=== PATIENT | female | born 1945 | race Caucasian/White ===

== ENCOUNTER 2025-04-15 17:12 | Inpatient (IN) | payer MEDICARE ==
[~2025-04-15] VITALS: Ht 172.7 cm; Wt 59.2 kg
[2025-04-15 17:28] VITALS: BP 127/67
[2025-04-15 17:47] LABS: BASO # 0.1 10*3/uL (0.0-0.1); BASO % 0.8 % (0.0-1.0); EOS # 0.2 10*3/uL (0.0-0.4); EOS % 1.3 % (1.0-4.0); MEAN CELL VOLUME 93.3 fl (81.0-99.0); MEAN CORPUSCULAR HGB 28.7 pg (27.0-31.0); MEAN PLATELET VOLUME 9.3 fl (9.6-12.3); MONO # 0.9 10*3/uL (0.1-1.0); MONO % 7.4 % (3.0-9.0); NEUT # 8.5 10*3/uL (2.3-7.9); NEUT % 72.8 % (47.0-73.0); NUCLEATED RED BLOOD CELL 0.0 % (0.0-0.0); NUCLEATED RED BLOOD CELL 0.0 10*3/uL (0.0-0.0); PLATELET COUNT AUTOMATED 227 10*3/uL (130-400); RED CELL DISTRI WIDTH 16.4 % (0-14.5)
[2025-04-15] MEDS ORDERED: ATENOLOL25 MG PO (17:51)
[2025-04-15] MEDS ORDERED: ATORVASTATIN CA10 M1 PO (17:52)
[2025-04-15] MEDS ORDERED: BUSPIRONE HCL10 MG PO (17:53)
[2025-04-15] MEDS ORDERED: Sinemet Cr 25-11 TAB PO (17:54)
[2025-04-15] MEDS ORDERED: CIPROFLOXACIN500 M4 PO (17:56)
[2025-04-15 17:58] LABS: ACT PARTIAL THROMBO TIME 31.0 SECONDS (20.0-32.1)
[2025-04-15] MEDS ORDERED: CYCLOBENZAPRINE10 MG PO (17:58)
[2025-04-15] MEDS ORDERED: DESVENLAFAXINE50 M3 PO (18:01)
[2025-04-15] MEDS ORDERED: FAMOTIDINE40 MG PO (18:03)
[2025-04-15] MEDS ORDERED: VOLTAREN ARTHRI20 GM T (18:03)
[2025-04-15 18:12] LABS: BUN 11 mg/dl (9-23); CPK 185 U/L (34-171)
[2025-04-15 18:13] LABS: ETHYL ALCOHOL < 3.0 mg/dl (<3); SGPT/ALT < 7 U/L (5-49)
[2025-04-15 18:32] LABS: BILIRUBIN Negative (Negative); BLOOD Negative (Negative); CLARITY Clear (Clear); COLOR Dark Yellow (Yellow); KETONE Trace (Negative); LEUKO ESTERASE 2+ (Negative); NITRITE Negative (Negative); PH 5.0 (4.5-8.0); SPECIFIC GRAVITY 1.020 (1.001-1.030); UROBILINOGEN 1.0 E.U./dl (0.0-1.0)
[2025-04-15 18:39] LABS: URINE AMPHETAMINES Negative (1000ng/ml); URINE BARBITURATES Positive (200ng/ml); URINE BENZODIAZEPINES Negative (200ng/ml); URINE CANNABINOIDS (THC) Negative (50ng/ml); URINE COCAINE Negative (300ng/ml); URINE METHADONE Negative (300ng/ml); URINE OPIATES Negative (300ng/ml); URINE PHENCYCLIDINE Negative (25ng/ml)
[2025-04-15 18:40] LABS: BACTERIA 1+; MUCOUS TRACE; RBC 0-2 rbc/hpf (0-2); WBC 31-40 wbc/hpf (0-5)
[2025-04-15] MEDS ORDERED: POTASSIUM CHLORIDE 20 MEQ TAB PO ONE (18:45)
[2025-04-15] MEDS ORDERED: MAGNESIUM OXIDE 400 MG TAB PO ONE (18:45)
[2025-04-15] MEDS ORDERED: FEROSUL325 M1 PO (18:59)
[2025-04-15] MEDS ORDERED: FUROSEMIDE40 MG PO (19:01)
[2025-04-15] MEDS ORDERED: FLORASTOR250 MG PO (19:01)
[2025-04-15] MEDS ORDERED: GABAPENTIN100 M2 PO (19:02)
[2025-04-15] MEDS ORDERED: GLIPIZIDE5 MG PO (19:02)
[2025-04-15] MEDS ORDERED: IMDUR SA30 MG PO (19:04)
[2025-04-15] MEDS ORDERED: LAMOTRIGINE200 MG PO (19:05)
[2025-04-15] MEDS ORDERED: LATANOPROST2.5 ML OP (19:07)
[2025-04-15] MEDS ORDERED: LAMOTRIGINE100 MG PO (19:07)
[2025-04-15] MEDS ORDERED: MELATONIN5 M1 PO (19:09)
[2025-04-15] MEDS ORDERED: MAGNESIUM400 M1 PO (19:09)
[2025-04-15] MEDS ORDERED: METFORMIN HYDR500 MG PO (19:11)
[2025-04-15] MEDS ORDERED: OMEPRAZOLE MAGN20 MG PO (19:11)
[2025-04-15] MEDS ORDERED: PHENOBARBITAL32.4 M2 PO (19:12)
[2025-04-15] MEDS ORDERED: PHENOBARBITAL64.8 MG PO (19:12)
[2025-04-15] MEDS ORDERED: POTASSIUM CHLO10 ME5 PO (19:13)
[2025-04-15] MEDS ORDERED: ROPINIROLE HYD0.5 MG PO (19:13)
[2025-04-15] MEDS ORDERED: SITAGLIPTIN100 MG PO (19:14)
[2025-04-16] MEDS ORDERED: Water, Sterile 10 ML VIAL IM PRN (00:55)
[2025-04-16] MEDS ORDERED: AVEENO ANTI-IT118 ML T (01:23)
[2025-04-16] MEDS ORDERED: HALOPERIDOL5 MG/1 M1 IM (01:50)
[2025-04-16] MEDS ORDERED: ABILIFY5 MG PO (01:56)
[2025-04-16] MEDS ORDERED: ASPERCREME LID1 EACH T (02:04)
[2025-04-16] MEDS ORDERED: BIOFREEZE T (02:07)
[2025-04-16 04:25] VITALS: BP 117/72
[2025-04-16 07:43] LABS: BASO # 0.1 10*3/uL (0.0-0.1); BASO % 0.6 % (0.0-1.0); EOS # 0.2 10*3/uL (0.0-0.4); EOS % 1.5 % (1.0-4.0); MEAN CELL VOLUME 94.7 fl (81.0-99.0); MEAN CORPUSCULAR HGB 28.7 pg (27.0-31.0); MEAN PLATELET VOLUME 9.8 fl (9.6-12.3); MONO # 0.8 10*3/uL (0.1-1.0); MONO % 6.1 % (3.0-9.0); NEUT # 9.4 10*3/uL (2.3-7.9); NEUT % 76.0 % (47.0-73.0); NUCLEATED RED BLOOD CELL 0.0 % (0.0-0.0); NUCLEATED RED BLOOD CELL 0.0 10*3/uL (0.0-0.0); PLATELET COUNT AUTOMATED 236 10*3/uL (130-400); RED CELL DISTRI WIDTH 16.5 % (0-14.5)
[2025-04-16 08:00] VITALS: BP 121/54
[2025-04-16] MEDS ORDERED: LORazepam 1 MG TAB PO PRN (08:00)
[2025-04-16] MEDS ORDERED: MG-AL HYDROXIDE/SIMETICONE 30 ML UDC PO PRN (08:00)
[2025-04-16] MEDS ORDERED: ACETAMINOPHEN 325 MG TAB PO PRN (08:00)
[2025-04-16] MEDS ORDERED: DIVALPROEX (DR) 500 MG TAB PO ONE (08:40)
[2025-04-16] MEDS ORDERED: Desvenlafaxine Succinate 50 MG TER PO SCH (09:00)
[2025-04-16] MEDS ORDERED: Menthol/Zinc Oxide 4 GM THIN T PRN (09:00)
[2025-04-16] MEDS ORDERED: PHENOBARBITAL 30 MG TAB PO SCH ×3 (09:00→21:00)
[2025-04-16] MEDS ORDERED: risperiDONE 1 MG TAB PO SCH (09:00)
[2025-04-16] MEDS ORDERED: DIVALPROEX (DR) 250 MG TAB PO SCH (09:00)
[2025-04-16] MEDS ORDERED: CEFDINIR 300 MG CAP PO SCH (09:00)
[2025-04-16 10:35] LABS: BUN 8 mg/dl (9-23); LDL CHOLESTEROL 58 mg/dL (9-159)
[2025-04-16 10:36] LABS: SGPT/ALT < 7 U/L (5-49)
[2025-04-16] MEDS ORDERED: POTASSIUM CHLORIDE 20 MEQ TAB PO ONE (10:45)
[2025-04-16 10:55] LABS: VITAMIN D, 25-HYDROXY 26.0 ng/mL (30-100)
[2025-04-16] MEDS ORDERED: GABAPENTIN 100 MG CAP PO SCH (13:00)
[2025-04-16] MEDS ORDERED: Carbidopa/Levodopa CR 25/100MG 1 TAB PO SCH (13:00)
[2025-04-16] MEDS ORDERED: glipiZIDE 5 MG TAB PO SCH (16:30)
[2025-04-16 20:00] VITALS: BP 177/69
[2025-04-16] MEDS ORDERED: MAGNESIUM OXIDE 400 MG TAB PO SCH (21:00)
[2025-04-16] MEDS ORDERED: LAMOTRIGINE 100 MG TAB PO SCH (22:00)
[2025-04-16] MEDS ORDERED: LATANOPROST 0.005% 2.5 ML BOTTLE OPH SCH (22:00)
[2025-04-17 08:53] VITALS: BP 132/54
[2025-04-17] MEDS ORDERED: LINAGLIPTIN 5 MG TAB PO SCH (09:00)
[2025-04-17] MEDS ORDERED: ATENOLOL 25 MG TAB PO SCH (10:00)
[2025-04-17] MEDS ORDERED: FUROSEMIDE 40 MG TAB PO SCH (10:00)
[2025-04-17] MEDS ORDERED: FAMOTIDINE 20 MG TAB PO SCH (10:00)
[2025-04-17] MEDS ORDERED: ISOSORBIDE MONONITRATE 30 MG TAB PO SCH (10:00)
[2025-04-17] MEDS ORDERED: OMEPRAZOLE 20 MG CAP PO SCH (10:00)
[2025-04-17] MEDS ORDERED: ATORVASTATIN CALCIUM 10 MG TAB PO SCH (10:00)
[2025-04-17] MEDS ORDERED: LAMOTRIGINE 100 MG TAB PO SCH (10:00)
[2025-04-17 20:00] VITALS: BP 133/58
[2025-04-18 08:00] VITALS: BP 106/44
[2025-04-18] MEDS ORDERED: POTASSIUM CHLORIDE 10 MEQ TAB PO SCH (09:00)
[2025-04-18 20:00] VITALS: BP 117/58
[2025-04-19 06:32] LABS: BUN 10 mg/dl (9-23)
[2025-04-19 08:11] VITALS: BP 121/47
[2025-04-19] MEDS ORDERED: DIVALPROEX (DR) 500 MG TAB PO SCH (13:00)
[2025-04-19 14:07] LABS: Tpa Abs Non Reactive (Non Reactive)
[2025-04-19 20:00] VITALS: BP 113/55
[2025-04-20 08:11] VITALS: BP 132/85
[2025-04-20] MEDS ORDERED: DIVALPROEX SODIUM 125 MG CAP PO SCH (09:00)
[2025-04-20] MEDS ORDERED: Cholecalciferol 2,000 UNIT TABLET (50 MCG) PO SCH (10:05)
[2025-04-20 20:00] VITALS: BP 99/65
[2025-04-21 08:41] VITALS: BP 124/48
[2025-04-21 09:59] LABS: MEAN CELL VOLUME 92.8 fl (81.0-99.0); MEAN CORPUSCULAR HGB 29.0 pg (27.0-31.0); MEAN PLATELET VOLUME 10.1 fl (9.6-12.3); NUCLEATED RED BLOOD CELL 0.0 % (0.0-0.0); NUCLEATED RED BLOOD CELL 0.0 10*3/uL (0.0-0.0); PLATELET COUNT AUTOMATED 261 10*3/uL (130-400); RED CELL DISTRI WIDTH 16.6 % (0-14.5)
[2025-04-21 10:13] LABS: MANUAL DIFF REFLEX YES
[2025-04-21 10:30] LABS: BUN 14 mg/dl (9-23); SGPT/ALT 7 U/L (5-49)
[2025-04-21 10:54] LABS: PLATELET SUFFICIENCY NORMAL (NORMAL)
[2025-04-21 12:08] LABS: MEAN CELL VOLUME 92.3 fl (81.0-99.0); MEAN CORPUSCULAR HGB 28.4 pg (27.0-31.0); MEAN PLATELET VOLUME 10.1 fl (9.6-12.3); NUCLEATED RED BLOOD CELL 0.0 % (0.0-0.0); NUCLEATED RED BLOOD CELL 0.0 10*3/uL (0.0-0.0); PLATELET COUNT AUTOMATED 268 10*3/uL (130-400); RED CELL DISTRI WIDTH 16.4 % (0-14.5)
[2025-04-21] MEDS ORDERED: SODIUM CHLORIDE 0.9% 1,000 ML IV ONE (12:15)
[2025-04-21 12:25] LABS: MANUAL DIFF REFLEX YES
[2025-04-21 12:54] LABS: PLATELET SUFFICIENCY NORMAL (NORMAL)
[2025-04-21 20:00] VITALS: BP 153/83
[2025-04-21 21:07] LABS: BILIRUBIN Negative (Negative); BLOOD Negative (Negative); CLARITY Clear (Clear); COLOR Yellow (Yellow); KETONE 3+ (Negative); LEUKO ESTERASE Negative (Negative); NITRITE Negative (Negative); PH 5.5 (4.5-8.0); SPECIFIC GRAVITY 1.020 (1.001-1.030); UROBILINOGEN 0.2 E.U./dl (0.0-1.0)
[2025-04-21 21:14] LABS: BACTERIA TRACE; MUCOUS 1+
[2025-04-22 07:18] LABS: MEAN CELL VOLUME 93.8 fl (81.0-99.0); MEAN CORPUSCULAR HGB 29.1 pg (27.0-31.0); MEAN PLATELET VOLUME 10.2 fl (9.6-12.3); NUCLEATED RED BLOOD CELL 0.0 % (0.0-0.0); NUCLEATED RED BLOOD CELL 0.0 10*3/uL (0.0-0.0); PLATELET COUNT AUTOMATED 251 10*3/uL (130-400); RED CELL DISTRI WIDTH 16.6 % (0-14.5)
[2025-04-22 07:21] LABS: MANUAL DIFF REFLEX YES
[2025-04-22 07:32] LABS: BUN 18 mg/dl (9-23); VALPROIC ACID (DEPAKENE) 12.2 ug/ml (50-100)
[2025-04-22 07:52] LABS: PLATELET SUFFICIENCY NORMAL (NORMAL)
[2025-04-22 08:00] VITALS: BP 153/103
[2025-04-22] MEDS ORDERED: hydrOXYzine hydrochloride 50 MG/ML VIAL IM PRN (13:40)
[2025-04-22] MEDS ORDERED: SODIUM CHLORIDE 0.9% 10 ML VIAL IV ONE (17:15)
[2025-04-22] MEDS ORDERED: ACETAMINOPHEN 650 MG SUPP R PRN (17:20)
[2025-04-22] MEDS ORDERED: SODIUM CHLORIDE 0.9% 1,000 ML IV ONE (17:20)
[2025-04-22 20:00] VITALS: BP 153/99
[2025-04-23] MEDS ORDERED: diphenhydrAMINE hydrochloride 50 MG/ML VIAL IM ONE (00:15)
[2025-04-23] MEDS ORDERED: diphenhydrAMINE hydrochloride 50 MG/ML VIAL ONE (00:29)
[2025-04-23 08:00] VITALS: BP 120/65
[2025-04-23] MEDS ORDERED: LORazepam 1 MG TAB PO PRN (08:20)
[2025-04-23] MEDS ORDERED: diazePAM 10 MG/2 ML SYR IM PRN (08:30)
[2025-04-23 08:53] LABS: MEAN CORPUSCULAR HGB 28.7 pg (27.0-31.0); MEAN PLATELET VOLUME 10.5 fl (9.6-12.3); NUCLEATED RED BLOOD CELL 0.0 % (0.0-0.0); NUCLEATED RED BLOOD CELL 0.0 10*3/uL (0.0-0.0); PLATELET COUNT AUTOMATED 247 10*3/uL (130-400); RED CELL DISTRI WIDTH 16.4 % (0-14.5)
[2025-04-23 09:05] LABS: MANUAL DIFF REFLEX YES; MEAN CELL VOLUME 97.9 fl (81.0-99.0)
[2025-04-23 09:15] LABS: BASOPHILS 1 % (0-1)
[2025-04-23 09:16] LABS: PLATELET SUFFICIENCY NORMAL (NORMAL)
[2025-04-23 09:18] LABS: BUN 20 mg/dl (9-23); SGPT/ALT 11 U/L (5-49)
[2025-04-23] MEDS ORDERED: SODIUM CHLORIDE 0.9% 1,000 ML IV ONE (15:25)
[2025-04-23 20:00] VITALS: BP 134/99
[2025-04-24 07:08] LABS: BASO # 0.1 10*3/uL (0.0-0.1); BASO % 0.5 % (0.0-1.0); EOS # 0.0 10*3/uL (0.0-0.4); EOS % 0.1 % (1.0-4.0); MEAN CELL VOLUME 98.0 fl (81.0-99.0); MEAN CORPUSCULAR HGB 28.7 pg (27.0-31.0); MEAN PLATELET VOLUME 10.5 fl (9.6-12.3); MONO # 1.1 10*3/uL (0.1-1.0); MONO % 7.6 % (3.0-9.0); NEUT # 10.1 10*3/uL (2.3-7.9); NEUT % 70.5 % (47.0-73.0); NUCLEATED RED BLOOD CELL 0.0 % (0.0-0.0); NUCLEATED RED BLOOD CELL 0.0 10*3/uL (0.0-0.0); PLATELET COUNT AUTOMATED 212 10*3/uL (130-400); RED CELL DISTRI WIDTH 16.2 % (0-14.5)
[2025-04-24 07:13] LABS: BUN 22 mg/dl (9-23)
[2025-04-24] MEDS ORDERED: VITAMIN D350 MCG PO (08:10)
[2025-04-24] MEDS ORDERED: SODIUM CHLORIDE 0.45% 1,000 ML IV ONE (08:15)
[2025-04-24] MEDS ORDERED: HALOPERIDOL5 MG/1 M1 IM (22:05)
== END 2025-04-24 08:34 | disposition short-term general hospital (02) | DRG 883 ==
LOC: ED 17:12 → 3N 18:59
PROVIDERS: Internal Medicine; Registered Nurse; ADMIT Psychiatry & Neurology Psychiatry; ATTEND Psychiatry & Neurology Psychiatry
PROC: GZHZZZZ Group Psychotherapy (ICD-10-PCS; principal; 2025-04-20)
DX: F63.81 Intermittent explosive disorder (principal); E11.65 Type 2 diabetes mellitus with hyperglycemia; I11.0 Hypertensive heart disease with heart failure; N30.00 Acute cystitis without hematuria; F02.84 Dementia in other diseases classified elsewhere, unspecified severity, with anxiety; R65.10 Systemic inflammatory response syndrome (SIRS) of non-infectious origin without acute organ dysfunction; D64.9 Anemia, unspecified; E55.9 Vitamin D deficiency, unspecified; I50.9 Heart failure, unspecified; G40.909 Epilepsy, unspecified, not intractable, without status epilepticus; E78.5 Hyperlipidemia, unspecified; I48.91 Unspecified atrial fibrillation; K21.9 Gastro-esophageal reflux disease without esophagitis; G30.9 Alzheimer's disease, unspecified; G20.A1 Parkinson's disease without dyskinesia, without mention of fluctuations; F31.9 Bipolar disorder, unspecified; G25.81 Restless legs syndrome; H40.9 Unspecified glaucoma; E87.6 Hypokalemia; E11.42 Type 2 diabetes mellitus with diabetic polyneuropathy; Z88.2 Allergy status to sulfonamides; Z88.8 Allergy status to other drugs, medicaments and biological substances; Z79.899 Other long term (current) drug therapy

== ENCOUNTER 2025-04-25 18:51 | Inpatient (IN) | payer OTHER ==
[~2025-04-25] VITALS: Ht 162.6 cm; Wt 68.0 kg
[~2025-04-25 18:51] MED LIST: ABILIFY5 MG PO; ASPERCREME LID1 EACH T; ATENOLOL25 MG PO; ATORVASTATIN CA10 M1 PO; AVEENO ANTI-IT118 ML T; BIOFREEZE T; BUSPIRONE HCL10 MG PO; CIPROFLOXACIN500 M4 PO; CYCLOBENZAPRINE10 MG PO; DESVENLAFAXINE50 M3 PO; FAMOTIDINE40 MG PO; FEROSUL325 M1 PO; FLORASTOR250 MG PO; FUROSEMIDE40 MG PO; GABAPENTIN100 M2 PO; GLIPIZIDE5 MG PO; HALOPERIDOL5 MG/1 M1 IM; IMDUR SA30 MG PO; LAMOTRIGINE100 MG PO; LAMOTRIGINE200 MG PO; LATANOPROST2.5 ML OP; MAGNESIUM400 M1 PO; MELATONIN5 M1 PO; METFORMIN HYDR500 MG PO; OMEPRAZOLE MAGN20 MG PO; PHENOBARBITAL32.4 M2 PO; PHENOBARBITAL64.8 MG PO; POTASSIUM CHLO10 ME5 PO; ROPINIROLE HYD0.5 MG PO; SITAGLIPTIN100 MG PO; Sinemet Cr 25-11 TAB PO; VITAMIN D350 MCG PO; VOLTAREN ARTHRI20 GM T
[2025-04-25] MEDS ORDERED: ACETAMINOPHEN 650 MG SUPP R PRN (19:40)
[2025-04-25] MEDS ORDERED: HYOSCYAMINE SULFATE 0.125 MG TAB SL PRN (19:40)
[2025-04-25] MEDS ORDERED: BISACODYL 10 MG SUPP R PRN (19:40)
[2025-04-25 20:00] VITALS: BP 138/50
[2025-04-25] MEDS ORDERED: diazePAM 10 MG/2 ML SYR IV SCH (20:00)
[2025-04-26] VITALS: BP 83/39
[2025-04-26 04:00] VITALS: BP 90/50
[2025-04-26 08:00] VITALS: BP 71/37
[2025-04-26] MEDS ORDERED: SODIUM CHLORIDE 0.9% 500 ML IV SCH (09:25)
[2025-04-26 11:15] VITALS: BP 60/40
== END 2025-04-26 12:16 ==
LOC: 4E 18:51
PROVIDERS: ADMIT Student in an Organized Health Care Education/Training Program; ATTEND Student in an Organized Health Care Education/Training Program
DX: I21.4 Non-ST elevation (NSTEMI) myocardial infarction (principal); E87.0 Hyperosmolality and hypernatremia; N30.00 Acute cystitis without hematuria; E87.20 Acidosis, unspecified; R65.10 Systemic inflammatory response syndrome (SIRS) of non-infectious origin without acute organ dysfunction; F31.9 Bipolar disorder, unspecified; K21.9 Gastro-esophageal reflux disease without esophagitis; E78.5 Hyperlipidemia, unspecified; I10 Essential (primary) hypertension; G62.9 Polyneuropathy, unspecified; G20.A1 Parkinson's disease without dyskinesia, without mention of fluctuations; G25.81 Restless legs syndrome; G40.909 Epilepsy, unspecified, not intractable, without status epilepticus; E55.9 Vitamin D deficiency, unspecified; E87.6 Hypokalemia; R62.7 Adult failure to thrive; D72.829 Elevated white blood cell count, unspecified; F02.80 Dementia in other diseases classified elsewhere, unspecified severity, without behavioral disturbance, psychotic disturbance, mood disturbance, and anxiety; E11.42 Type 2 diabetes mellitus with diabetic polyneuropathy; E78.2 Mixed hyperlipidemia; F03.90 Unspecified dementia, unspecified severity, without behavioral disturbance, psychotic disturbance, mood disturbance, and anxiety; Z66 Do not resuscitate; Z51.5 Encounter for palliative care; Z79.4 Long term (current) use of insulin